=== PATIENT | male | born 1945 | race Caucasian/White ===

== ENCOUNTER → 2017-11-09 | Outpatient (CLI) | payer MEDICARE ==
[~2017-11-09] MED LIST: CHOL10002 PO; HYDCHL25 PO; LEVSOD100 PO; ROSU5 PO
== END | disposition home or self-care (01) ==
LOC: LAB SHORT 13:20 → PLD 13:20
DX: D22.5 Melanocytic nevi of trunk (principal)
CPT/HCPCS: 88305

== ENCOUNTER → 2018-11-09 | Outpatient (CLI) | payer MEDICARE | END | disposition home or self-care (01) | LOC: LAB SHORT 15:44 → PLD 15:44 | DX: D22.62 Melanocytic nevi of left upper limb, including shoulder (principal) | CPT/HCPCS: 88305 ==

== ENCOUNTER → 2018-11-22 | Outpatient (CLI) | payer MEDICARE | END | disposition home or self-care (01) | LOC: LAB SHORT 14:20 → PLD 14:20 | DX: D22.62 Melanocytic nevi of left upper limb, including shoulder (principal) | CPT/HCPCS: 88305 ==

== ENCOUNTER 2019-10-23 08:32 | Day surgery (SDC) | payer MEDICARE ==
[~2019-10-23] VITALS: Ht 177.8 cm; Wt 74.8 kg
--- NOTE | 2019-10-23 09:58 | NUR ---
Ambulatory in Day Surgery History, Chart, Medications and Allergies reviewed before start of procedure.Patient confirms NPO status and agrees with scheduled surgery. Patient states colon prep results clear.Lungs clear T/O to Auscultation. Patient States Post-Procedure ride home has been arranged.
--- NOTE | 2019-10-23 10:10 | NUR ---
10/23/19 1010 Radha Lynne History, Chart, Medications and Allergies reviewed before start of procedure.PATIENT CONFIRMS NPO STATUS AND AGREES WITH SCHEDULED PROCEDURE.MONITOR INTACT WITH CONTINUOUS PULSE OXIMETRY AND INTERMITTENT BP. O2 VIA N/C INTACT THROUGHOUT SEDATION/PROCEDURE. 3-LEAD EKG REVIEWED WITH PHYSICIAN PRIOR TO START OF PROCEDURE. PATIENT DETERMINED TO BE ASA APPROPRIATE FOR PROPOFOL SEDATION PRIOR TO START OF PROCEDURE BY DR. DOWNS.
--- NOTE | 2019-10-23 12:04 | NUR ---
Patient up to Ambulate independently. Gait steady. Discharge instructions reviewed with patient AND FAMILY AT [facility]. . Patient verbalizes understanding. Copy given to patient to take home.
== END 2019-10-23 12:03 | disposition home or self-care (01) ==
LOC: ORSCMMR 08:32 → ORD 09:00 → ORSCMMR 10:15 → ORD 10:15 → ORSCMMR 12:03
PROVIDERS: Surgery
PROC: 0DBN8ZX Excision of Sigmoid Colon, Via Natural or Artificial Opening Endoscopic, Diagnostic (ICD-10-PCS; principal; 2019-10-23 10:15)
DX: R19.09 Other intra-abdominal and pelvic swelling, mass and lump (principal); D12.5 Benign neoplasm of sigmoid colon; K92.1 Melena; R63.4 Abnormal weight loss; K64.8 Other hemorrhoids; K64.4 Residual hemorrhoidal skin tags; Z86.010 Personal history of colon polyps; Z80.0 Family history of malignant neoplasm of digestive organs; Z87.891 Personal history of nicotine dependence; I10 Essential (primary) hypertension; E78.5 Hyperlipidemia, unspecified; Z79.899 Other long term (current) drug therapy
CPT/HCPCS: 88305; J2704; J7120

== ENCOUNTER → 2021-03-28 | Outpatient (CLI) | payer MEDICARE ==
[2021-03-31 16:08] LABS: FATS, NEUTRAL Normal (.); FATS, TOTAL Normal (.)
== END | disposition home or self-care (01) ==
LOC: LAB 13:56 → LAB SHORT 13:56
PROVIDERS: Family Medicine
DX: R19.7 Diarrhea, unspecified (principal)
CPT/HCPCS: 82705

== ENCOUNTER → 2021-10-17 | Outpatient (CLI) | payer MEDICARE ==
[2021-10-17 13:05] LABS: Albumin, Blood 3.6 g/dL (3.4-5.0); Bilirubin, Total 0.4 mg/dL (0.1-1.0); Calcium, Blood 8.8 mg/dL (8.5-10.1); Creatinine, Blood 1.35 mg/dL (0.60-1.20); Globulin, Blood 3.7 g/dL (2.2-4.0); Potassium, Blood 3.2 mmol/L (3.5-5.5); Thyroid Stimulating Hormone 0.398 uIU/mL (0.360-4.800); Total Protein, Blood 7.3 g/dL (6.4-8.2)
[2021-10-17 13:20] LABS: BASOPHILS ABSOLUTE AUTO 0.01 K/mm3 (0.00-0.23); BASOPHILS PERCENT AUTO 0 % (0-2); EOSINOPHILS PERCENT AUTO 0 % (0-6); Hemoglobin 13.8 g/dL (13.5-17.5); IMMATURE GRAN ABSOLUTE AUTO 0.01 K/mm3 (0.00-0.10); IMMATURE GRAN PERCENT AUTO 0 % (0-1); LYMPHOCYTES ABSOLUTE AUTO 0.34 K/mm3 (0.84-5.20); LYMPHOCYTES PERCENT AUTO 6 % (21-46); MONOCYTES ABSOLUTE AUTO 0.54 K/mm3 (0.16-1.47); MONOCYTES PERCENT AUTO 10 % (4-13); Mean Corpuscular HGB 32.3 pg (26.0-34.0); Mean Corpuscular HGB Conc 33.7 g/dL (31.5-36.5); Mean Corpuscular Volume 96 fL (80-100); Mean Platelet Volume 10.5 fL (9.1-12.4); NEUTROPHILS ABSOLUTE AUTO 4.59 K/mm3 (1.96-9.15); NEUTROPHILS PERCENT AUTO 84 % (41-73); Platelet Count 187 K/mm3 (150-400); RDW Coefficient Variation 14.8 % (11.7-14.2); RDW Standard Deviation 53.1 fL (35.1-46.3); Red Blood Cell Count 4.27 M/mm3 (4.30-5.90); White Blood Cell Count 5.49 K/mm3 (4.00-11.30)
== END | disposition home or self-care (01) ==
LOC: LAB SHORT 12:39
PROVIDERS: Physician Assistant
DX: R53.83 Other fatigue (principal)
CPT/HCPCS: 80053; 84443; 85025

== ENCOUNTER → 2021-10-18 | Outpatient (CLI) | payer MEDICARE | END | disposition home or self-care (01) | LOC: LAB EV 10:08 | DX: R53.83 Other fatigue (principal) | CPT/HCPCS: 82550; 83880; 84484 ==

== ENCOUNTER 2021-10-23 18:30 | Emergency (ER) | payer MEDICARE ==
[~2021-10-23] VITALS: Ht 180.3 cm; Wt 78.5 kg
[2021-10-23 19:08] LABS: BASOPHILS ABSOLUTE AUTO 0.01 K/mm3 (0.00-0.23); BASOPHILS PERCENT AUTO 0 % (0-2); EOSINOPHILS ABSOLUTE AUTO 0.01 K/mm3 (0.00-0.68); EOSINOPHILS PERCENT AUTO 0 % (0-6); IMMATURE GRAN ABSOLUTE AUTO 0.01 K/mm3 (0.00-0.10); IMMATURE GRAN PERCENT AUTO 0 % (0-1); LYMPHOCYTES ABSOLUTE AUTO 0.35 K/mm3 (0.84-5.20); LYMPHOCYTES PERCENT AUTO 7 % (21-46); MONOCYTES PERCENT AUTO 12 % (4-13); Mean Corpuscular HGB 32.3 pg (26.0-34.0); Mean Corpuscular HGB Conc 34.1 g/dL (31.5-36.5); Mean Corpuscular Volume 95 fL (80-100); Mean Platelet Volume 10.7 fL (9.1-12.4); NEUTROPHILS ABSOLUTE AUTO 4.13 K/mm3 (1.96-9.15); NEUTROPHILS PERCENT AUTO 81 % (41-73); Platelet Count 201 K/mm3 (150-400); RDW Coefficient Variation 14.8 % (11.7-14.2); RDW Standard Deviation 51.9 fL (35.1-46.3); Red Blood Cell Count 4.34 M/mm3 (4.30-5.90); White Blood Cell Count 5.11 K/mm3 (4.00-11.30)
[2021-10-23 19:26] LABS: Influenza A, PCR NEGATIVE (NEGATIVE); Influenza B, PCR NEGATIVE (NEGATIVE); Resp Syncytial Virus, PCR NEGATIVE (NEGATIVE)
[2021-10-23 19:26] LABS: Albumin, Blood 3.4 g/dL (3.4-5.0); Albumin/Globulin Ratio 0.9 (0.8-1.8); Bilirubin, Total 0.5 mg/dL (0.1-1.0); Bun/Creatinine Ratio 21.3 (12.0-20.0); Calcium, Blood 8.7 mg/dL (8.5-10.1); Creatinine, Blood 1.22 mg/dL (0.60-1.20); Globulin, Blood 3.6 g/dL (2.2-4.0); Potassium, Blood 3.9 mmol/L (3.5-5.5)
[2021-10-23 19:34] LABS: SARS-Cov-2 (COVID-19) PCR, MMC POSITIVE (NEGATIVE)
[2021-10-23 23:54] LABS: Source, Urine Clean Catch
[2021-10-24 00:01] LABS: Bilirubin, Urine Neg (Neg); Blood, Urine 1+ (Neg); Glucose Qualitative, Urine Neg (Neg); Ketones, Urine 2+ (Neg); Leukocyte Esterase, Urine Neg (Neg); Nitrite, Urine Neg (Neg); Protein, Urine 2+ (Neg); Urobilinogen, Urine NORM (Normal)
[2021-10-24 00:08] LABS: Appearance, Urine Clear (Clear); Color, Urine Yellow (P-Yellow)
[2021-10-24 00:09] LABS: Bacteria Rare /hpf; Red Blood Cells, Urine 0-2 /hpf (0-2); Squamous Epithelial Cells Few /hpf (Few); White Blood Cells, Urine Rare /hpf (0-5)
== END 2021-10-24 01:45 | disposition home or self-care (01) ==
LOC: ER 18:30
PROVIDERS: Physician Assistant
DX: U07.1 COVID-19 (principal); I10 Essential (primary) hypertension; E78.5 Hyperlipidemia, unspecified; Z79.899 Other long term (current) drug therapy
CPT/HCPCS: 0241U; 36415; 71045; 80053; 81001; 85025; 99284-25; A9270; J7030

== ENCOUNTER 2023-03-15 14:32 | Observation (INO) | payer MEDICARE ==
[~2023-03-15] VITALS: Ht 177.8 cm; Wt 72.6 kg
[~2023-03-15 14:32] MED LIST changes: -CHOL10002 PO; +VITAMIN D31000 UNI1 PO
[2023-03-15 15:04] LABS: BASOPHILS ABSOLUTE AUTO 0.09 K/mm3 (0.00-0.23); BASOPHILS PERCENT AUTO 0 % (0-2); EOSINOPHILS ABSOLUTE AUTO 0.38 K/mm3 (0.00-0.68); EOSINOPHILS PERCENT AUTO 2 % (0-6); Hematocrit 33.9 % (37.0-53.0); Hemoglobin 11.1 g/dL (13.5-17.5); IMMATURE GRAN ABSOLUTE AUTO 0.13 K/mm3 (0.00-0.10); IMMATURE GRAN PERCENT AUTO 1 % (0-1); LYMPHOCYTES ABSOLUTE AUTO 1.01 K/mm3 (0.84-5.20); LYMPHOCYTES PERCENT AUTO 5 % (21-46); MONOCYTES ABSOLUTE AUTO 1.48 K/mm3 (0.16-1.47); MONOCYTES PERCENT AUTO 7 % (4-13); Mean Corpuscular HGB Conc 32.7 g/dL (31.5-36.5); Mean Corpuscular Volume 92 fL (80-100); Mean Platelet Volume 9.8 fL (9.1-12.4); NEUTROPHILS PERCENT AUTO 85 % (41-73); Platelet Count 429 K/mm3 (150-400); RDW Coefficient Variation 14.9 % (11.7-14.2); White Blood Cell Count 20.79 K/mm3 (4.00-11.30)
[2023-03-15 15:22] LABS: Albumin, Blood 3.1 g/dL (3.4-5.0); Albumin/Globulin Ratio 0.8 (0.8-1.8); Bilirubin, Total 0.3 mg/dL (0.1-1.0); Bun/Creatinine Ratio 25.4 (12.0-20.0); Calcium, Blood 9.9 mg/dL (8.5-10.1); Creatinine, Blood 1.18 mg/dL (0.60-1.20); Globulin, Blood 4.1 g/dL (2.2-4.0); Total Protein, Blood 7.2 g/dL (6.4-8.2)
[2023-03-15 17:32] LABS: Source, Urine Clean Catch
[2023-03-15 17:36] LABS: Appearance, Urine Clear (Clear); Bilirubin, Urine Neg (Neg); Blood, Urine Neg (Neg); Color, Urine Yellow (P-Yellow); Glucose Qualitative, Urine Neg (Neg); Ketones, Urine Neg (Neg); Leukocyte Esterase, Urine Neg (Neg); Nitrite, Urine Neg (Neg); Protein, Urine 1+ (Neg); Urobilinogen, Urine NORM (Normal)
[2023-03-15 19:34] LABS: Adenovirus Not Detected (NOT DETECT); Bordetella pertussis Not Detected (NOT DETECT); Chlamydophila pneumoniae Not Detected (NOT DETECT); Coronavirus 229E Not Detected (NOT DETECT); Coronavirus HKU1 Not Detected (NOT DETECT); Coronavirus NL63 Not Detected (NOT DETECT); Coronavirus OC43 Not Detected (NOT DETECT); Human Metapneumovirus Not Detected (NOT DETECT); Human Rhinovirus/Enterovirus Not Detected (NOT DETECT); Influenza A/2009-H1 Not Detected (NOT DETECT); Influenza A/H1 Not Detected (NOT DETECT); Influenza A/H3 Not Detected (NOT DETECT); Influenza B Not Detected (NOT DETECT); Mycoplasma pneumoniae Not Detected (NOT DETECT); Parainfluenza Virus 1 Not Detected (NOT DETECT); Parainfluenza Virus 2 Not Detected (NOT DETECT); Parainfluenza Virus 3 Not Detected (NOT DETECT); Parainfluenza Virus 4 Not Detected (NOT DETECT); Respiratory Syncytial Virus Not Detected (NOT DETECT); SARS-Cov-2 (COVID-19), BioFire Not Detected (NOT DETECT)
[2023-03-15] MEDS ORDERED: CHLO25B PO (20:10)
[2023-03-15] MEDS ORDERED: LEVSOD112 PO (20:10)
[2023-03-15] MEDS ORDERED: FOLI1 PO (20:10)
[2023-03-15] MEDS ORDERED: ALBU90OI INH (20:12)
[2023-03-15 20:13] VITALS: BP 109/60
[2023-03-15] MEDS ORDERED: IPRAT-ALBUT 0.5-3 ML INH (20:13)
[2023-03-15] MEDS ORDERED: AZELASTINE137 MCG/01 (20:14)
[2023-03-15] MEDS ORDERED: FAMO20 PO (20:14)
[2023-03-15] MEDS ORDERED: POTA10T PO (20:15)
[2023-03-15] MEDS ORDERED: KLOR-CON 1010 ME9 PO (20:21)
--- NOTE | 2023-03-16 03:45 | NUR ---
SHIFT SUMMERY. PT RESTING IN BED, PT TRYING TO SLEEP BUT IV PUMP ALARM ING FOR UNKNOWN RESONS. CALL LIGH IN REACH PT VOIDIDNG IN URINAL. FIRE SAFETY REVIEWED.
[2023-03-16 04:06] VITALS: BP 98/63
[2023-03-16 04:48] LABS: BASOPHILS ABSOLUTE AUTO 0.05 K/mm3 (0.00-0.23); BASOPHILS PERCENT AUTO 0 % (0-2); EOSINOPHILS ABSOLUTE AUTO 0.36 K/mm3 (0.00-0.68); EOSINOPHILS PERCENT AUTO 2 % (0-6); Hematocrit 26.3 % (37.0-53.0); Hemoglobin 8.4 g/dL (13.5-17.5); IMMATURE GRAN ABSOLUTE AUTO 0.09 K/mm3 (0.00-0.10); IMMATURE GRAN PERCENT AUTO 1 % (0-1); LYMPHOCYTES ABSOLUTE AUTO 0.55 K/mm3 (0.84-5.20); LYMPHOCYTES PERCENT AUTO 4 % (21-46); MONOCYTES ABSOLUTE AUTO 1.16 K/mm3 (0.16-1.47); MONOCYTES PERCENT AUTO 7 % (4-13); Mean Corpuscular HGB 29.7 pg (26.0-34.0); Mean Corpuscular HGB Conc 31.9 g/dL (31.5-36.5); Mean Corpuscular Volume 93 fL (80-100); Mean Platelet Volume 9.6 fL (9.1-12.4); NEUTROPHILS ABSOLUTE AUTO 13.47 K/mm3 (1.96-9.15); NEUTROPHILS PERCENT AUTO 86 % (41-73); Platelet Count 324 K/mm3 (150-400); RDW Coefficient Variation 15.1 % (11.7-14.2); Red Blood Cell Count 2.83 M/mm3 (4.30-5.90); White Blood Cell Count 15.68 K/mm3 (4.00-11.30)
[2023-03-16] MEDS ORDERED: Ventolin/Prove6.7 GM INH (05:00)
[2023-03-16 05:09] LABS: Albumin, Blood 2.5 g/dL (3.4-5.0); Albumin/Globulin Ratio 0.8 (0.8-1.8); Bilirubin, Total 0.2 mg/dL (0.1-1.0); Calcium, Blood 8.6 mg/dL (8.5-10.1); Magnesium, Blood 1.6 mg/dL (1.6-2.4); Potassium, Blood 3.3 mmol/L (3.5-5.5); Total Protein, Blood 5.5 g/dL (6.4-8.2)
[2023-03-16 07:28] VITALS: BP 95/61
[2023-03-16 09:45] LABS: Stool Occult Blood Guaiac 1 Pos (Neg)
[2023-03-16 15:36] VITALS: BP 110/64
--- NOTE | 2023-03-16 18:28 | NUR ---
SHIFT SUMMARY- PT IS A/O, PLESANT AND COOPETATIVE. SBA TO THE RESTROOM. GI CONSULTED PT THIS SHIFT. WILL SCOPE TOMORROW. PT WILL HAVE REGULAR DIET THIS EVENING THEN CLEAR LIQUID IN THE MORNING, THEN NPO AFTER BREAKFAST. FAMILY AT BEDSIDE THIS EVENING. HIS BED IS IN THE LOW POSITON AND CALL LIGHT IS WITIN REACH.
[2023-03-16 19:52] VITALS: BP 102/57
--- NOTE | 2023-03-16 23:31 | NUR ---
SHIFT SUMMERY PT RESTING IN BED, PT WANTING TO SLEEP TONIGHT. PT NOT ABLE TO SLEEP WELL LAST NOC. PT DENIED ANY NEEDS. CALL LIGHT IN REACH . FIRE SAFETY REVIEWED.
[2023-03-17] VITALS (20 sets, daily range): BP systolic 99–132; BP diastolic 59–88
[2023-03-17 06:14] LABS: Albumin, Blood 2.6 g/dL (3.4-5.0); Albumin/Globulin Ratio 0.8 (0.8-1.8); Bilirubin, Total 0.3 mg/dL (0.1-1.0); Bun/Creatinine Ratio 19.2 (12.0-20.0); Calcium, Blood 9.1 mg/dL (8.5-10.1); Creatinine, Blood 1.04 mg/dL (0.60-1.20); Globulin, Blood 3.2 g/dL (2.2-4.0); Magnesium, Blood 1.7 mg/dL (1.6-2.4); Potassium, Blood 3.1 mmol/L (3.5-5.5); Total Protein, Blood 5.8 g/dL (6.4-8.2)
[2023-03-17 07:03] LABS: BASOPHILS ABSOLUTE AUTO 0.08 K/mm3 (0.00-0.23); BASOPHILS PERCENT AUTO 1 % (0-2); EOSINOPHILS ABSOLUTE AUTO 0.41 K/mm3 (0.00-0.68); EOSINOPHILS PERCENT AUTO 2 % (0-6); Hematocrit 28.1 % (37.0-53.0); Hemoglobin 9.1 g/dL (13.5-17.5); IMMATURE GRAN ABSOLUTE AUTO 0.07 K/mm3 (0.00-0.10); IMMATURE GRAN PERCENT AUTO 0 % (0-1); LYMPHOCYTES ABSOLUTE AUTO 0.76 K/mm3 (0.84-5.20); LYMPHOCYTES PERCENT AUTO 5 % (21-46); MONOCYTES ABSOLUTE AUTO 1.22 K/mm3 (0.16-1.47); MONOCYTES PERCENT AUTO 7 % (4-13); Mean Corpuscular HGB 30.3 pg (26.0-34.0); Mean Corpuscular HGB Conc 32.4 g/dL (31.5-36.5); Mean Corpuscular Volume 94 fL (80-100); Mean Platelet Volume 10.1 fL (9.1-12.4); NEUTROPHILS ABSOLUTE AUTO 14.43 K/mm3 (1.96-9.15); NEUTROPHILS PERCENT AUTO 85 % (41-73); Platelet Count 356 K/mm3 (150-400); RDW Standard Deviation 51.3 fL (35.1-46.3); White Blood Cell Count 16.97 K/mm3 (4.00-11.30)
--- NOTE | 2023-03-17 15:10 | NUR ---
PT RECENTLY TO [facility] BY [facility]. History, Chart, Medications and Allergies reviewed before start of procedure.Lungs clear T/O to Auscultation. Patient confirms NPO status and agrees with scheduled surgery. Pre-Op teaching done. Pt verbalizes understanding.
--- NOTE | 2023-03-17 15:39 | NUR ---
03/17/23 1539 Sailaja Henry HISTORY, CHART, MEDICATIONS AND ALLERGIES REVIEWED BEFORE START OF PROCEDURE. PATIENT CONFIRMS NPO STATUS AND AGREES WITH SCHEDULED PROCEDURE. 3-LEAD EKG REVIEWED WITH PHYSICIAN PRIOR TO START OF PROCEDURE. MONITOR INTACT WITH CONTINUOUS PULSE OXIMETRY,CAPNOGRAPHY, 3-LEAD EKG, INTERMITTENT BP. SUPPLEMENTAL O2 TO BE TITRATED THROUGHOUT PROCEDURE TO MAINTAIN O2 SATURATION ABOVE 90%. PATIENT DETERMINED TO BE ASA APPROPRIATE FOR PROPOFOL SEDATION PRIOR TO START OF PROCEDURE BY DR. RODRIGUEZ.
--- NOTE | 2023-03-17 17:22 | NUR ---
SHIFT SUMMARY- PT IS A/O, PLESANT AND COOPERTIVE. HE WENT FOR AN EGD THIS SHIFT, BIOPSIES WERE TAKEN. AT BEDSIDE. DR. RODRIGUEZ SPOKE TO PT AND POST PROCEDURE. HIS BED IS IN THE LOW POSITION AND CALL LIGHT IS WITHIN REACH.
--- NOTE | 2023-03-18 03:40 | NUR ---
SHIFT SUMMARY- PT ALERT, ORIENTED AND INDEPEDENT IN THE ROOM. PT GOT UP ONCE IN THE NIGHT, WONDERED INTO THE HALLWAY AND CONTINUED ON SAYING THAT HE WAS A LITTLE UNSURE OF WHERE HE WAS. PT WAS LOOKING FOR THE BATHROOM, ONCE REDIRECTED TO THE RIGHT PLACE HE WAS ORIENTED. PT HAD AN EPISODE OF BLACK STOOL (PER PT REPORT, THIS RN UNABLE TO VISUALIZE) PT AGREED NOT TO FLUSH IF IT HAPENS AGAIN. PT WENT FOR A SCOPE YESTERDAY AND A MASS WAS FOUND, PT IS UNSURE IF HE IS WILLING TO PERSUE TREATMENT IF IT IS POSSITIVE FOR CANCER. PT IN BED, CALL LIGHT IN REACH, NO S&S OF DISTRESS NOTED.
[2023-03-18 07:37] VITALS: BP 110/65
[2023-03-18] MEDS ORDERED: PANT40 PO (10:55)
--- NOTE | 2023-03-18 12:11 | NUR ---
DISCHARGED FROM THE UNIT. IV REMOVED. DISCHARGE INSTRUCTIONS REVIEWED. MEDICATIONS FAXED TO PHARMACY. INSTRUCTED ON FOLLOW UP APTS. PT LEFT UNIT VIA WHEEL CHAIR, TO DRIVE HOME
== END 2023-03-18 11:49 | disposition home or self-care (01) ==
LOC: ER 14:32 → MEDS 14:33 → ENPENDDIS 03-18 10:08 → MEDS 03-18 11:49
PROVIDERS: Emergency Medicine; Internal Medicine; Internal Medicine Gastroenterology; Student in an Organized Health Care Education/Training Program; ADMIT Student in an Organized Health Care Education/Training Program
PROC: 0DB98ZX Excision of Duodenum, Via Natural or Artificial Opening Endoscopic, Diagnostic (ICD-10-PCS; principal; 2023-03-17 19:45)
DX: R55 Syncope and collapse (principal); R94.31 Abnormal electrocardiogram [ECG] [EKG]; C17.0 Malignant neoplasm of duodenum; E87.6 Hypokalemia; E86.0 Dehydration; E78.5 Hyperlipidemia, unspecified; E89.0 Postprocedural hypothyroidism; D64.9 Anemia, unspecified; I12.9 Hypertensive chronic kidney disease with stage 1 through stage 4 chronic kidney disease, or unspecified chronic kidney disease; N18.2 Chronic kidney disease, stage 2 (mild); T50.2X5A Adverse effect of carbonic-anhydrase inhibitors, benzothiadiazides and other diuretics, initial encounter; K44.9 Diaphragmatic hernia without obstruction or gangrene; Z85.72 Personal history of non-Hodgkin lymphomas; Z79.899 Other long term (current) drug therapy; Z85.46 Personal history of malignant neoplasm of prostate
CPT/HCPCS: 0202U; 36415; 71046; 71260; 74177; 80053; 82105; 82270; 82378; 82941; 83605; 83690; 83735; 83880; 84443; 84484; 85025; 86301; 86316; 87040; 88305; 88342; 93005; 93010; 94760; 96361; 96374-59; 96376; 99285-25; A9270; G0378; J2704; J3480; J7030; J7120; Q9967